=== PATIENT | male | born 1970 | race Caucasian/White ===

== ENCOUNTER 2017-01-04 07:53 | Emergency (ER) | payer BC, OTHER ==
[~2017-01-04] VITALS: Ht 167.6 cm; Wt 61.4 kg
[2017-01-04 08:45] LABS: BASO # 0.1 (0.0-0.2); BASO % 1.1 % (0.0-2.0); EOS # 0.2 (0.0-0.7); EOS % 2.3 % (0-4.0); GRAN # 3.8 (1.4-6.5); GRAN % 57.3 % (42.2-75.2); HEMATOCRIT 44.1 % (42.0-52.0); HEMOGLOBIN 14.8 g/dl (13.5-18.0); LYMPH # 2.1 (1.2-3.4); LYMPH % 31.7 % (20.0-51.0); MEAN CELL VOLUME 93 fl (80.0-100.0); MEAN CORPUSCULAR HEMOGLOBIN 31 pg (27.0-31.0); MEAN CORPUSCULAR HGB CONC 34 g/dl (33.0-37.0); MEAN PLATELET VOLUME 8.7 fl (7.4-10.4); MONO # 0.5 (0.1-0.6); MONO % 7.3 % (1.7-9.3); PLATELET COUNT 286 K/mm3 (130-400); RED BLOOD COUNT 4.73 M/mm3 (4.20-5.60); REDCELL DISTRIBUTION WIDTH-CV 13.3 % (11.5-14.5); WHITE BLOOD COUNT 6.6 K/mm3 (4.8-10.8)
[2017-01-04 08:56] LABS: PH 6 (5-8); SQUAMOUS EPITHELIAL None Seen /hpf; URINE APPEARANCE Clear; URINE BACTERIA None Seen /hpf; URINE BILIRUBIN Negative (NEGATIVE); URINE BLOOD Negative (NEGATIVE); URINE COLOR Yellow; URINE GLUCOSE Negative (NEGATIVE); URINE KETONE Negative (NEGATIVE); URINE RBC 0-2 /hpf; URINE UROBILINOGEN Negative (NEGATIVE); URINE WBC 0-2 /hpf
[2017-01-04 09:00] LABS: ADJUSTED CALCIUM 9.2 mg/dL (8.4-10.2); ALANINE AMINOTRANSFERASE 20 U/L (21-72); ALBUMIN 4.3 gm/dL (3.5-5.0); ALKALINE PHOSPHATASE 66 U/L (50-136); ANION GAP 12 mmol/L (7-16); BILIRUBIN,TOTAL 0.6 mg/dL (0.0-1.0); BLOOD UREA NITROGEN 14 mg/dL (9-20); CALCIUM 9.4 mg/dL (8.4-10.2); CARBON DIOXIDE 26 mmol/L (22-30); CHLORIDE 103 mmol/L (98-107); CREATININE, serum 0.82 mg/dL (0.66-1.25); GLUCOSE 129 mg/dL (74-106); LIPASE 82 U/L (23-300); SODIUM 141 mmol/L (137-145); TOTAL PROTEIN 7.2 gm/dL (6.4-8.2)
[2017-01-04 09:08] LABS: C-REACTIVE PROTEIN < 0.5 mg/dL (0.0-0.9)
[2017-01-04 09:42] LABS: AMPHETAMINE URINE NEGATIVE; BARBITURATES URINE NEGATIVE; BENZODIAZEPINES URINE NEGATIVE; BUPRENORPHINE URINE NEGATIVE; METHADONE URINE NEGATIVE; OPIATES URINE NEGATIVE; OXYCODONE URINE NEGATIVE; PHENCYCLIDINE URINE NEGATIVE; PROPOXYPHENE URINE NEGATIVE; THC CANNABINOIDS URINE POSITIVE
[2017-01-04] MEDS ORDERED: FLOMAX 0.40.4 MG/CAP PO (10:42)
[2017-01-04] MEDS ORDERED: NORCO 325 MG-51 TAB PO (10:42)
[2017-01-04 11:09] VITALS: BP 117/83; PULSE 60; TEMP 97.8
== END 2017-01-04 11:03 | disposition home or self-care (01) ==
LOC: COL.ER 07:53
PROVIDERS: Physician Assistant
DX: R10.31 Right lower quadrant pain (principal); R33.9 Retention of urine, unspecified; R30.0 Dysuria; Z87.442 Personal history of urinary calculi; F17.210 Nicotine dependence, cigarettes, uncomplicated; Q63.1 Lobulated, fused and horseshoe kidney
CPT/HCPCS: J1885; J7030; Q9967

== ENCOUNTER → 2017-01-16 | Outpatient (REF) ==
[~2017-01-16] MED LIST: FLOMAX 0.40.4 MG/CAP PO; NORCO 325 MG-51 TAB PO
== END ==
LOC: WSOH 14:09 → WSPT 14:45
DX: Z02.1 Encounter for pre-employment examination (principal)

== ENCOUNTER 2019-05-25 08:05 | Emergency (ER) | payer SELFPAY ==
[~2019-05-25] VITALS: Ht 167.6 cm; Wt 59.1 kg
[2019-05-25 08:11] VITALS: TEMP 98.1
[2019-05-25 09:33] VITALS: BP 110/78; PULSE 65
== END 2019-05-25 09:44 | disposition home or self-care (01) ==
LOC: COL.ER 08:05
DX: S92.402A Displaced unspecified fracture of left great toe, initial encounter for closed fracture (principal); S91.102A Unspecified open wound of left great toe without damage to nail, initial encounter; F17.210 Nicotine dependence, cigarettes, uncomplicated; F12.90 Cannabis use, unspecified, uncomplicated; Z23 Encounter for immunization; W22.8XXA Striking against or struck by other objects, initial encounter; Y92.009 Unspecified place in unspecified non-institutional (private) residence as the place of occurrence of the external cause

== ENCOUNTER 2021-06-27 08:11 | Emergency (ER) | payer SELFPAY ==
[~2021-06-27] VITALS: Ht 167.6 cm; Wt 61.4 kg
[2021-06-27 08:14] VITALS: BP 120/79; TEMP 98.3
[2021-06-27] MEDS ORDERED: PEN-VEE K500 MG PO (08:30)
[2021-06-27 09:04] VITALS: PULSE 78
== END 2021-06-27 09:04 | disposition home or self-care (01) ==
LOC: COL.ER 08:11
DX: K04.7 Periapical abscess without sinus (principal)